=== PATIENT | male | born 1960 | race Caucasian/White ===

== ENCOUNTER 2016-03-27 16:27 | Emergency (ER) | payer BC | END 2016-03-27 21:40 | disposition home or self-care (01) | LOC: D.ER 16:27 | DX: G51.0 Bell's palsy (principal); I10 Essential (primary) hypertension; F17.200 Nicotine dependence, unspecified, uncomplicated ==

== ENCOUNTER 2016-04-05 13:30 | Emergency (ER) | payer MEDICAID | END 2016-04-05 15:25 | disposition home or self-care (01) | LOC: D.ER 13:30 | DX: G51.0 Bell's palsy (principal); I10 Essential (primary) hypertension ==

== ENCOUNTER 2016-05-24 19:21 | Emergency (ER) | payer MEDICAID ==
[2016-05-24 23:11] LABS: APPEARANCE CLEAR (CLEAR); COLOR YELLOW (YELLOW)
[2016-05-24 23:12] LABS: BILIRUBIN NEGATIVE (NEGATIVE); GLUCOSE NEGATIVE (NEGATIVE); KETONE NEGATIVE (NEGATIVE); LEUKOCYTE ESTERASE TRACE (NEGATIVE); NITRITE NEGATIVE (NEGATIVE); PROTEIN NEGATIVE (NEGATIVE); UROBILINOGEN NORMAL (NORMAL)
[2016-05-24 23:26] LABS: BACTERIA FEW /hpf (NONE SEEN); CALCIUM OXALATE CRYSTALS RARE /hpf (NONE SEEN); EPITHELIAL CELLS OCC /hpf (0-5); HYALINE CAST OCC /lpf (NONE SEEN); RED CELLS - URINE OCC /hpf (0-5); WHITE CELLS - URINE 0-5 /hpf (0-5)
== END 2016-05-24 23:57 | disposition home or self-care (01) ==
LOC: D.ER 19:21
PROVIDERS: Nurse Practitioner Family
DX: G51.0 Bell's palsy (principal); I10 Essential (primary) hypertension; M10.9 Gout, unspecified; F17.200 Nicotine dependence, unspecified, uncomplicated